=== PATIENT | female | born 1970 | race Caucasian/White ===

== ENCOUNTER 2022-07-25 06:02 | Emergency (ER) | payer OTHER ==
[~2022-07-25] VITALS: Ht 157.5 cm; Wt 103.4 kg
[2022-07-25 06:10] VITALS: BP 108/61
--- NOTE | 2022-07-25 06:10 | NUR ---
TO BED AMBULATORY
--- NOTE | 2022-07-25 06:20 | NUR ---
RECEIVED IN BED 9 WITH C/O SORETHROAT, COUGH FOR 4 DAYS
--- NOTE | 2022-07-25 06:30 | NUR ---
SWABS OBTAINED AND SENT TO LAB
--- NOTE | 2022-07-25 06:36 | NUR ---
XRAY AT BEDSIDE
[2022-07-25] MEDS ORDERED: BENZ200C4 PO (06:58)
[2022-07-25] MEDS ORDERED: BENZ-300 PO (06:58)
[2022-07-25] MEDS ORDERED: MUC600 PO (06:58)
--- NOTE | 2022-07-25 07:53 | NUR ---
Patient discharged with v/s stable. Written and verbal after care instructions given and explained. Patient alert, oriented and verbalized understanding of instructions. Ambulatory with steady gait. All questions addressed prior to discharge. ID band removed. Patient advised to follow up with PMD. Rx of cepacol, guifenesin given. Patient educated on indication of medication including possible reaction and side effects. Opportunity to ask questions provided and answered.
== END 2022-07-25 07:53 | disposition home or self-care (01) ==
LOC: MED 06:02
DX: J06.9 Acute upper respiratory infection, unspecified (principal); Z20.822 Contact with and (suspected) exposure to COVID-19; J45.909 Unspecified asthma, uncomplicated; Z79.899 Other long term (current) drug therapy
CPT/HCPCS: 71045; 99284

== ENCOUNTER 2022-08-28 08:35 | Emergency (ER) | payer OTHER ==
[~2022-08-28] VITALS: Ht 162.6 cm; Wt 108.9 kg
[~2022-08-28 08:35] MED LIST: BENZ-300 PO; BENZ200C4 PO; MUC600 PO
[2022-08-28 09:05] VITALS: BP 121/77
--- NOTE | 2022-08-28 09:34 | NUR ---
PT C/O OF LT UPPER ABD PAIN RADIATING TO LOWER ABD AND LOWER BACK SINCE WEDNESDAY. TODAY BLOOD IN URINE. SAFETY MAINTAINED. HX: ASTHMA
[2022-08-28 10:12] LABS: BASOPHILS % (AUTO) 0.6 % (0.0-2.0); EOSINOPHILS # (AUTO) 0.1 K/uL (0-0.4); EOSINOPHILS % (AUTO) 1.5 % (0.0-4.0); HEMATOCRIT 42.1 % (36-48); HEMOGLOBIN 14.3 g/dL (12.0-16.0); LYMPHOCYTES # (AUTO) 2.1 K/uL (2.5-16.5); LYMPHOCYTES % (AUTO) 40.8 % (20.5-51.1); MEAN CORPUSCULAR HEMOGLOBIN 31 pg (27-31); MEAN CORPUSCULAR HGB CONC 34 g/dL (33-37); MEAN CORPUSCULAR VOLUME 92.1 fL (80-94); MONOCYTES # (AUTO) 0.4 K/uL (0.8-1.0); MONOCYTES % (AUTO) 8.4 % (1.7-9.3); NEUTROPHILS # (AUTO) 2.5 K/uL (1.8-7.7); NEUTROPHILS % (AUTO) 48.7 % (42.2-75.2); PLATELET COUNT (AUTO) 209 K/uL (140-450); RED BLOOD CELL COUNT(AUTO) 4.57 MIL/uL (4.20-5.40); RED CELL DISTRIBUTION WIDTH 13.3 % (11.6-13.7); WHITE BLOOD COUNT (AUTO) 5.1 K/uL (4.8-10.8)
[2022-08-28 10:13] LABS: APPEARANCE,URINE CLEAR (CLEAR); BILIRUBIN,URINE NEGATIVE (NEGATIVE); BLOOD, URINE NEGATIVE (NEGATIVE); COLOR,URINE YELLOW (YELLOW); LEUKOCYTE ESTERASE ,URINE 1+ (NEGATIVE); NITRITE, URINE NEGATIVE (NEGATIVE); UGLUCOSE NEGATIVE (NEGATIVE)
[2022-08-28 10:30] LABS: ALBUMIN 3.8 g/dL (3.4-5.0); ANION GAP 11.2 (8-16); CARBON DIOXIDE 27.9 mmol/L (21-32); CREATININE 0.7 mg/dL (0.6-1.3); POTASSIUM 4.1 mmol/L (3.5-5.1); TOTAL BILIRUBIN 0.4 mg/dL (0.0-1.0)
[2022-08-28 10:40] LABS: RBC,URINE 0-5 /HPF (0-5)
[2022-08-28] MEDS ORDERED: NITR100C7 PO (10:53)
[2022-08-28] MEDS ORDERED: DICYCLOMINE HCL LIQUID 20 MG, ALUMINUM HYD/MAG/SIMETHICONE 30 ML, LIDOCAINE VISCOUS 2% ... PO ONE ×3 (10:55)
[2022-08-28] MEDS ORDERED: ALUMINUM HYD/MAG/SIMETHICONE 30 ML UDC ONE ×2 (11:11→11:34)
[2022-08-28 11:20] VITALS: BP 107/77
--- NOTE | 2022-08-28 11:21 | NUR ---
Patient discharged with v/s stable. Written and verbal after care instructions given and explained. Patient verbalized understanding. Ambulatory with steady gait. All questions addressed prior to discharge. Advised to follow up with PMD.
[2022-08-28] MEDS ORDERED: DICYCLOMINE HCL LIQUID 10 MG/5 ML UDC ONE (11:34)
== END 2022-08-28 11:20 | disposition home or self-care (01) ==
LOC: MED 08:35
DX: R10.12 Left upper quadrant pain (principal); J45.909 Unspecified asthma, uncomplicated; Z79.899 Other long term (current) drug therapy; Z79.2 Long term (current) use of antibiotics
CPT/HCPCS: 36415; 80053; 81001; 83690; 85025; 87086; 99283